=== PATIENT | female | born 1940 | race Caucasian/White ===

== ENCOUNTER 2017-12-17 12:54 | Inpatient (IN) | payer MEDICARE ==
[~2017-12-17] VITALS: Ht 162.6 cm; Wt 88.6 kg
[2017-12-17 13:49] LABS: HEMATOCRIT 34.9 % (37.0-47.0); HEMOGLOBIN 10.8 g/dl (12.0-16.0); IMMATURE GRANULOCYTES 0.6 % (0.0-1.0); MEAN CELL VOLUME 80.6 fL CALC (80.0-100.0); MEAN CORPUSCULAR HGB 24.9 pG CALC (26.0-32.0); MEAN CORPUSCULAR HGB CONC 30.9 g/L CALC (32.0-36.0); NEUT# 10.1 thou/uL (2.00-7.15); RED BLOOD COUNT 4.33 mill/uL (4.20-5.60); RED CELL DISTRI WIDTH 23.6 % (11.5-15.5)
[2017-12-17 14:03] LABS: ALBUMIN 3.5 g/dL (3.2-5.0); ALKALINE PHOSPHATASE 101 u/l (38-126); AMYLASE 61 u/l (30-110); ANION GAP 19 (6-22 (CALC)); BILIRUBIN, TOTAL 0.3 mg/dL (0.0-1.4); BUN 74 mg/dL (8-23); BUN/CREATININE RATIO 23 (12-20 (CALC)); CALCIUM 10.4 mg/dL (8.4-10.2); CARBON DIOXIDE 13 mmol/l (22-30); CHLORIDE 118 mmol/l (95-108); CREATININE 3.2 mg/dL (0.5-1.0); GFR 14 ML/MIN (>=60 (CALC)); GFR FOR AFR.AMER. 17 ML/MIN (>=60 (CALC)); GLUCOSE 105 mg/dL (82-115); LIPASE 302 u/l (23-300); SGOT/AST 23 u/l (9-36); SGPT/ALT 29 u/l (11-66); SODIUM 142 mmol/l (137-146); TOTAL PROTEIN 6.7 g/dL (6.3-8.2)
[2017-12-17 14:14] LABS: MYOGLOBIN 53 ng/mL (0 - 62)
[2017-12-17 14:22] LABS: POTASSIUM 7.6 mmol/l (3.5-5.1)
[2017-12-17] MEDS ORDERED: ONDANSETRON HCL4 MG PO (14:48)
[2017-12-17] MEDS ORDERED: METFORMIN500 MG PO (14:49)
[2017-12-17] MEDS ORDERED: TORSEMIDE20 M1 PO (14:49)
[2017-12-17] MEDS ORDERED: PLAVIX75 MG PO (14:49)
[2017-12-17] MEDS ORDERED: LISINOPRIL2.5 MG PO (14:50)
[2017-12-17] MEDS ORDERED: METOPROL TAR25 MG PO (14:51)
[2017-12-17] MEDS ORDERED: K-TAB20 MEQ PO (14:52)
[2017-12-17] MEDS ORDERED: LIPITOR20 MG PO (14:53)
[2017-12-17] MEDS ORDERED: [UNRECOGNIZED DRUG - CODE] PO (14:53)
[2017-12-17] MEDS ORDERED: FISH OIL1000 MG PO (14:54)
[2017-12-17] MEDS ORDERED: CINNAMON PO (14:54)
[2017-12-17] MEDS ORDERED: VITAMIN D35000 UNIT PO (14:55)
[2017-12-17] MEDS ORDERED: ASPIRIN 8181 MG PO (14:55)
[2017-12-17] MEDS ORDERED: CALCIUM 600 + D1 TAB PO (14:56)
[2017-12-17 16:18] VITALS: BP 140/61
[2017-12-17 18:45] VITALS: BP 130/69
[2017-12-17 23:25] VITALS: BP 98/59
[2017-12-17 23:51] LABS: POTASSIUM 6.2 mmol/l (3.5-5.1)
[2017-12-18 04:32] VITALS: BP 131/51
[2017-12-18 06:07] LABS: CALCIUM 9.6 mg/dL (8.4-10.2); CHOLESTEROL HDL RATIO 2.1 (<4.4 (CALC)); CREATININE 2.4 mg/dL (0.5-1.0); MAGNESIUM 1.8 mg/dL (1.6-2.3)
[2017-12-18 06:08] LABS: POTASSIUM 7.9 mmol/l (3.5-5.1)
[2017-12-18 06:10] LABS: HEMATOCRIT 30.1 % (37.0-47.0); HEMOGLOBIN 9.2 g/dl (12.0-16.0); IMMATURE GRANULOCYTES 0.7 % (0.0-1.0); MEAN CELL VOLUME 82.9 fL CALC (80.0-100.0); MEAN CORPUSCULAR HGB 25.3 pG CALC (26.0-32.0); MEAN CORPUSCULAR HGB CONC 30.6 g/L CALC (32.0-36.0); NEUT# 7.14 thou/uL (2.00-7.15); RED BLOOD COUNT 3.63 mill/uL (4.20-5.60); RED CELL DISTRI WIDTH 23.7 % (11.5-15.5)
[2017-12-18 08:30] VITALS: BP 151/64
[2017-12-18 10:36] LABS: POTASSIUM 5.9 mmol/l (3.5-5.1)
[2017-12-18 10:42] LABS: URINE BILIRUBIN - DIPSTICK NEGATIVE (NEGATIVE); URINE BLOOD DIPSTICK NEGATIVE (NEGATIVE); URINE COLOR YELLOW; URINE GLUCOSE - DIPSTICK NEGATIVE (NEGATIVE); URINE KETONE NEGATIVE (NEGATIVE); URINE NITRITE - DIPSTICK NEGATIVE (Negative); URINE PROTEIN - DIPSTICK NEGATIVE (NEG-TRACE); URINE SPECIFIC GRAVITY 1.015; URINE UROBILINOGEN - DIPSTICK 0.2 E.U./dL (0.2)
[2017-12-18 10:50] LABS: URINE BACTERIA FEW hpf; URINE CLARITY SL CLOUDY; URINE EPITHELIAL CELLS FEW EPI/hpf (0-FEW); URINE LEUK ESTERASE SMALL (NEGATIVE)
[2017-12-18 11:15] VITALS: BP 119/66
[2017-12-18 15:50] VITALS: BP 140/66
[2017-12-18 20:05] VITALS: BP 121/63
[2017-12-18 22:47] LABS: CALCIUM 8.8 mg/dL (8.4-10.2); CREATININE 2.1 mg/dL (0.5-1.0)
[2017-12-18 22:48] LABS: POTASSIUM 5.4 mmol/l (3.5-5.1)
[2017-12-19 00:15] VITALS: BP 141/56
[2017-12-19 01:26] LABS: INFLUENZA A NONE DETECTED (NONE DETECT); INFLUENZA B NONE DETECTED (NONE DETECT)
[2017-12-19 04:20] VITALS: BP 138/66
[2017-12-19 06:54] LABS: HEMATOCRIT 27.1 % (37.0-47.0); HEMOGLOBIN 8.5 g/dl (12.0-16.0); IMMATURE GRANULOCYTES 0.7 % (0.0-1.0); MEAN CELL VOLUME 79.7 fL CALC (80.0-100.0); MEAN CORPUSCULAR HGB CONC 31.4 g/L CALC (32.0-36.0); NEUT# 7.7 thou/uL (2.00-7.15); RED BLOOD COUNT 3.4 mill/uL (4.20-5.60); RED CELL DISTRI WIDTH 23.6 % (11.5-15.5)
[2017-12-19 07:04] LABS: ALBUMIN 2.3 g/dL (3.2-5.0); CALCIUM 8.6 mg/dL (8.4-10.2); CREATININE 1.8 mg/dL (0.5-1.0); MAGNESIUM 1.4 mg/dL (1.6-2.3); POTASSIUM 4.9 mmol/l (3.5-5.1)
[2017-12-19 12:28] VITALS: BP 138/57
[2017-12-19 16:30] VITALS: BP 137/64
[2017-12-19 19:30] VITALS: BP 127/57
[2017-12-20 00:15] VITALS: BP 130/59
[2017-12-20 05:05] VITALS: BP 107/78
[2017-12-20 05:47] LABS: HEMATOCRIT 25.6 % (37.0-47.0); MEAN CELL VOLUME 80.5 fL CALC (80.0-100.0); MEAN CORPUSCULAR HGB 25.2 pG CALC (26.0-32.0); MEAN CORPUSCULAR HGB CONC 31.3 g/L CALC (32.0-36.0); RED BLOOD COUNT 3.18 mill/uL (4.20-5.60); RED CELL DISTRI WIDTH 22.9 % (11.5-15.5)
[2017-12-20 06:08] LABS: CALCIUM 8.4 mg/dL (8.4-10.2); CREATININE 1.5 mg/dL (0.5-1.0); POTASSIUM 4.5 mmol/l (3.5-5.1)
[2017-12-20 06:10] LABS: ALBUMIN 2.1 g/dL (3.2-5.0); CALCIUM 8.6 mg/dL (8.4-10.2); CREATININE 1.5 mg/dL (0.5-1.0); POTASSIUM 4.5 mmol/l (3.5-5.1)
[2017-12-20 09:00] VITALS: BP 152/69
[2017-12-20 11:42] LABS: C. DIFFICILE TOXIN A&B NEGATIVE (NEGATIVE)
[2017-12-20 11:59] VITALS: BP 125/73
[2017-12-20 16:06] VITALS: BP 139/72
[2017-12-20 20:38] VITALS: BP 147/66
[2017-12-21 00:20] VITALS: BP 133/65
[2017-12-21 05:29] VITALS: BP 166/75
[2017-12-21 05:55] LABS: HEMATOCRIT 27.6 % (37.0-47.0); HEMOGLOBIN 8.6 g/dl (12.0-16.0); MEAN CELL VOLUME 81.2 fL CALC (80.0-100.0); MEAN CORPUSCULAR HGB 25.3 pG CALC (26.0-32.0); MEAN CORPUSCULAR HGB CONC 31.2 g/L CALC (32.0-36.0); RED BLOOD COUNT 3.4 mill/uL (4.20-5.60); RED CELL DISTRI WIDTH 23.1 % (11.5-15.5)
[2017-12-21 06:16] LABS: CREATININE 1.5 mg/dL (0.5-1.0); POTASSIUM 4.7 mmol/l (3.5-5.1)
[2017-12-21 07:45] VITALS: BP 160/67
[2017-12-21 11:38] VITALS: BP 140/62
[2017-12-21] MEDS ORDERED: JANUVIA50 MG PO (13:44)
[2017-12-21 15:35] VITALS: BP 137/50
== END 2017-12-21 16:21 | disposition home or self-care (01) | DRG 683 ==
LOC: ED 12:54 → ED-I 14:28 → ED 14:40 → MS2 14:41
PROVIDERS: Emergency Medicine; Internal Medicine Nephrology; Nurse Practitioner Family; ADMIT Internal Medicine; ATTEND Internal Medicine
DX: N17.9 Acute kidney failure, unspecified (principal); E87.2 Acidosis; I96 Gangrene, not elsewhere classified; E11.22 Type 2 diabetes mellitus with diabetic chronic kidney disease; E11.69 Type 2 diabetes mellitus with other specified complication; I13.0 Hypertensive heart and chronic kidney disease with heart failure and stage 1 through stage 4 chronic kidney disease, or unspecified chronic kidney disease; M86.671 Other chronic osteomyelitis, right ankle and foot; I50.9 Heart failure, unspecified; E83.42 Hypomagnesemia; E11.52 Type 2 diabetes mellitus with diabetic peripheral angiopathy with gangrene; E86.0 Dehydration; E87.5 Hyperkalemia; K21.9 Gastro-esophageal reflux disease without esophagitis; E78.5 Hyperlipidemia, unspecified; M19.90 Unspecified osteoarthritis, unspecified site; I25.10 Atherosclerotic heart disease of native coronary artery without angina pectoris; N18.3 Chronic kidney disease, stage 3 (moderate); D63.1 Anemia in chronic kidney disease; R11.2 Nausea with vomiting, unspecified; R19.7 Diarrhea, unspecified; Z95.0 Presence of cardiac pacemaker; Z95.5 Presence of coronary angioplasty implant and graft; Z79.84 Long term (current) use of oral hypoglycemic drugs
CPT/HCPCS: G0328; J1756; J3370

== ENCOUNTER 2018-01-05 11:48 | Inpatient (IN) | payer MEDICARE ==
[2018-01-05] VITALS (7 sets, daily range): BP systolic 119–163; BP diastolic 43–71
[~2018-01-05] VITALS: Ht 162.6 cm; Wt 92.0 kg
[~2018-01-05 11:48] MED LIST: ASPIRIN 8181 MG PO; CALCIUM 600 + D1 TAB PO; CINNAMON PO; CO Q 10100 MG PO; ELIQUIS2.5 MG PO; FISH OIL1000 MG PO; GLUCOSAMINE500 M1 PO; JANUVIA50 MG PO; K-TAB20 MEQ PO; LIPITOR20 MG PO; LISINOPRIL2.5 MG PO; METFORMIN500 MG PO; METOPROL TAR25 MG PO; MIRTAZAPINE15 M1 PO; MULTAQ400 MG PO; ONDANSETRON HCL4 MG PO; PLAVIX75 MG PO; TORSEMIDE20 M1 PO; TYLENOL PM PO; VITAMIN D35000 UNIT PO; [UNRECOGNIZED DRUG - CODE] PO; [UNRECOGNIZED DRUG - OTHER] PO
--- NOTE | 2018-01-05 16:50 | NUR ---
PT TO ROOM VIA STRETCHER ACCOMPANIED BY STAFF; TRANSFERED TO BED X2 PERSON ASSIST; PT A/O X3; DENIES PAIN; RA; VSS; DRSG TO RT FOOT CDI, RLE ELEVATED ON 2 PILLOWS; ICE PACK APPLIED TO RLE; LEFT 2ND AND 3RD TOE BLACK, COGNOS, NO DRAINAGE NOTED, SEE CHART FOR PICTURES; IVF INFUSING IN #20 LFA WITHOUT DIFFICULTY, NO REDNESS OR EDEMA AT SITE; PT ORIENTED TO ROOM AND CALL SYSTEM; SPOUSE IN TO VISIT; CALL RECINOS WITHIN REACH; WILL CONTINUE TO MONITOR.
--- NOTE | 2018-01-05 18:15 | NUR ---
PT ASSISTED TO BSC; VOIDS WITHOUT DIFFICULTY; CALL RECINOS WITHIN REACH; WILL CONTINUE TO MONITOR
--- NOTE | 2018-01-05 19:30 | NUR ---
PATIENT RESTING IN BED WITH RIGHT FOOT ELEVATED ON PILLOWS. PATIENT IS AWAKE ALERT AND ORIENTEDX3. PATIENT WITH NO COMPLAINTS OF PAIN AT THIS TIME. PATIENT STATES THAT HER FOOTIS STILL"NUMB". IV SITE TO LEFT FA INTACT WITH IVF PATENT AND INFUSING AT 100CC/HR. SITE APPEARS HEALTHY AT THIS TIME. PATIENT ON CONTACT PRECAUTIONS FOR HX OF MRSA. DRESSING TO RIGHT REMAINS INTACT AND SECURED WITH CHRIS WRAP. SAFETY PRECAUTIONS REINFORCED.CALL LIGHT IN REACH. WILL CONT TO MONITOR.
--- NOTE | 2018-01-05 23:15 | NUR ---
PATIENT C/O POST-OP PAIN TO THE RIGHT FOOT-MEDICATED WITH LORTAB 5/325MG PO ORDERED FOR PAIN. CLINDAMYCIN INFUSING ORDERED. RIGHT FOOT REMAINS ELEVATED. LEFT FOOT WITH SOME TOES DISCOLORED-PULSES PALPABLE. SAFETY PRECAUTIONS REINFORCED. CALL LIGHT IN REACH. WILL CONT TO MONITOR.
[2018-01-06 00:01] VITALS: BP 147/61
--- NOTE | 2018-01-06 00:52 | NUR ---
PATIENT SITTING UP IN CHAIR-BACK TO BED. MEDICATED FOR POST-OP PAIN WITH DILAUDID 2MG IVP ORDERED FOR PAIN. LR PATENT AND INFUSING AT 80CC/HR VIA RIGHT AC SITE-SITE REMAINS HEALTHY AT THIS TIME. SAFETY PRECAUTIONS REINFORCED. CALL LIGHT IN REACH. WILL CONT TO MONITOR.
[2018-01-06 04:02] VITALS: BP 146/67
--- NOTE | 2018-01-06 04:08 | NUR ---
IV SITE TO LEFT FOREARM INFILTRATED. SITE D/JENN-NEW IV SITE STARTED TO RIGHT FOREARM-#22 GAUGE WITH GOOD BLOOD RETURN. IVF NS PATENT AND INFUSING AT 100CC/HR. PATIENT WITH C/O POST-OP PAIN TO RIGHT FOOT. MEDICATED WITH LORTAB 5/325MG PO. RIGHT FOOT REMAINS ELEVATED ON PILLOWS. LEFT ARM ELEVATED ON PILLOW FOR SWELLING FROM INTILTRATION. SAFETY PRECAUTIONS REINFORCED. CALL LIGHT IN REACH. WILL CONT TO MONITOR.
[2018-01-06 05:39] LABS: CREATININE 1.9 mg/dL (0.5-1.0); HEMATOCRIT 27.7 % (37.0-47.0); HEMOGLOBIN 8.5 g/dl (12.0-16.0); IMMATURE GRANULOCYTES 0.3 % (0.0-1.0); MAGNESIUM 1.9 mg/dL (1.6-2.3); MEAN CELL VOLUME 85.5 fL CALC (80.0-100.0); MEAN CORPUSCULAR HGB 26.2 pG CALC (26.0-32.0); MEAN CORPUSCULAR HGB CONC 30.7 g/L CALC (32.0-36.0); NEUT# 5.27 thou/uL (2.00-7.15); POTASSIUM 4.4 mmol/l (3.5-5.1); RED BLOOD COUNT 3.24 mill/uL (4.20-5.60); RED CELL DISTRI WIDTH 22.3 % (11.5-15.5)
[2018-01-06 07:15] VITALS: BP 152/66
--- NOTE | 2018-01-06 07:15 | NUR ---
PATIENT ALERT AND ORIENTED. PUPILS ARE BRISK. HEART SOUNDS AND RHYTHM ARE NORMAL. LUNG SOUNDS ARE CLEAR. RADIAL PULSES ARE STRONG. BOWELS SOUNDS ARE ACTIVE, PATIENT STATES LAST BM 01/05/18. PATIENT HAS DRSG TO RIGHT FOOT, DRY AND INTACT. PATIENT STATES SHE CAN FEEL THE TOP OF HER FOOT,BOTTOM OF FOOT AND TOES ON RIGHT FOOT. PATIENT STATES SHE HAS NO PAIN AT THIS TIME. ENCOURAGED PATIENT TO CALL FOR ANY ASSISTANCE. SRX2, WHEELS LOCKED, BED IN LOWEST POSITION, CALL LIGHT WITHIN REACH. WILL CONTINUE TO MONITOR.
--- NOTE | 2018-01-06 09:42 | NUR ---
PLACED CALL TO SE[facility] GABRIELA REQUESTED HE BRING IN PTS MEDS TO VERIFY, ACKNOWLEDGE AGREEMENT.
--- NOTE | 2018-01-06 11:00 | NUR ---
AIDE ENTERED ROOM AND NOTICED THAT PT.HAD MOVED FROM THE BED TO THE CHAIR W/OUT CALLING FOR ASSISTANCE. CHAIR WAS UNLOCKED. AIDE PROCEEDED TO LOCK RECLINER AND THEN ASSIST PT.TO RESTROOM AND BACK TO RECLINER.
--- NOTE | 2018-01-06 11:39 | NUR ---
PT.IN RECLINER SLEEPING AND AT BEDSIDE ALSO SLEEPING. NO S/S OF DISTRESS AT THIS TIME. CALL LIGHT IS W/IN REACH
--- NOTE | 2018-01-06 14:13 | NUR ---
PT.MEDICATED ORDERS PROVIDE. PT.IS UPRIGHT IN BED IN HIGH FOWLERS POSITION WATCHING TV. POC DISCUSSED W/PT. SHE REPORTS FEELING MUCH BETTER AND JUST WAITING FOR THURSDAY. CALL LIGHT W/IN REACH.
[2018-01-06 16:00] VITALS: BP 160/90
[2018-01-06 18:50] VITALS: BP 164/71
--- NOTE | 2018-01-06 19:00 | NUR ---
RECEIVED CHANGE OF SHIFT REPORT FROM SOURAV JOY. PATIENT ALERT AND ORIENTED AND SITTING UP IN CHAIR. DENIES PAIN. NO APPARENT ACUTE DISTRESS OR DISCOMFORT NOTED. WILL CONTINUE TO MONITOR.
--- NOTE | 2018-01-07 | NUR ---
PATIENT RESTING QUIETLY WITH EYES CLOSED AND APPEARS TO BE ASLEEP. NO APPARENT ACUTE DISTRESS NOTED.
--- NOTE | 2018-01-07 04:00 | NUR ---
PT AWAKE AND LYING IN BED. NO APPARENT ACUTE CHANGES NOTED IN PT'S CONDITION
[2018-01-07 04:30] VITALS: BP 156/53
[2018-01-07 05:19] LABS: HEMATOCRIT 28.1 % (37.0-47.0); HEMOGLOBIN 8.5 g/dl (12.0-16.0); MEAN CELL VOLUME 85.9 fL CALC (80.0-100.0); MEAN CORPUSCULAR HGB CONC 30.2 g/L CALC (32.0-36.0); RED BLOOD COUNT 3.27 mill/uL (4.20-5.60); RED CELL DISTRI WIDTH 22.2 % (11.5-15.5)
[2018-01-07 05:33] LABS: CREATININE 1.9 mg/dL (0.5-1.0); POTASSIUM 4.1 mmol/l (3.5-5.1)
--- NOTE | 2018-01-07 08:15 | NUR ---
PT.IS UPRIGHT IN RECLINER W/OUT FOOT ELEVATED. I SPOKE WITH PT.REGARDING KEEPING FOOT ELEVATED, SHE SAID SHE WILL LET US ELEVATE IT AFTER BREAKFAST. V/S AND PT.ASSESSED. DRESSING CHANGE COMPLETE TO LEFT FOOT 2ND AND 3RD TOES W/BETADINE AND GAUZE ORDERED BY DR. SANTA. PT.DENIES ANY PAIN UPON DRESSING CHANGE. BREAKFAST TRAY HAS ARRIVED AND PT.LEFT UPRIGHT IN RECLINER EATING BREAKFAST AT THIS TIME, CALL LIGHT AT SIDE
[2018-01-07 08:28] VITALS: BP 146/50
--- NOTE | 2018-01-07 09:09 | NUR ---
PT.UPRIGHT IN RECLINER. PT.MEDICATED W/AM MEDICATIONS ODERS PROVIDE, CALL LIGHT IS W/IN REACH, PT.DENIES ANY OTHER ASSISTANCE AT THIS TIME.
--- NOTE | 2018-01-07 11:38 | NUR ---
PT.MEDICATED W/IV ANTIBIOTIC THERAPY. PT.IS IN RECLINER. I ASSISTED PT.IN ELEVATING FEET W/ RECLINER AND 2XPILLOWS. IS AT BEDSIDE. PT.DENIES ANY OTHER NEEDS,CALL LIGHT AT SIDE
[2018-01-07 12:42] LABS: URINE BILIRUBIN - DIPSTICK NEGATIVE (NEGATIVE); URINE BLOOD DIPSTICK NEGATIVE (NEGATIVE); URINE COLOR YELLOW; URINE GLUCOSE - DIPSTICK NEGATIVE (NEGATIVE); URINE KETONE NEGATIVE (NEGATIVE); URINE NITRITE - DIPSTICK NEGATIVE (Negative); URINE PROTEIN - DIPSTICK NEGATIVE (NEG-TRACE); URINE SPECIFIC GRAVITY <=1.005; URINE UROBILINOGEN - DIPSTICK 0.2 E.U./dL (0.2)
[2018-01-07 12:45] LABS: URINE CLARITY CLEAR; URINE LEUK ESTERASE SMALL (NEGATIVE)
[2018-01-07 13:36] LABS: URINE SQUAMOUS EPITHELIAL CELL FEW EPI/hpf (0-FEW)
[2018-01-07 15:20] VITALS: BP 150/77
--- NOTE | 2018-01-07 16:55 | NUR ---
PT.IS SITTING IN RECLINER W/LEGS ELEVATED AND FEET ON PILLOWS X2 READING THE PAPER. IS AT BEDSIDE. DRESSINGS TO RIGHT FOOT AND LEFT TOES ARE CDI. POC DISCUSSED W/PT. LUNG SOUNDS ARE CLEAR AT THIS TIME. PT.DENIES ANY NEEDS. WILL FOLLOW-UP WITH MEDICAITONS ORDERED. CALL LIGHT IS W/IN REACH
--- NOTE | 2018-01-07 19:00 | NUR ---
RECEIVED CHANGE OF SHIFT REPORT FROM SOURAV JOY. PATIENT SITTING UP IN CHAIR WITH FEET ELEVATED. DENIES PAIN. NO APPARENT ACUTE DISTRESS OR DISCOMFORT NOTED. WILL CONTINUE TO MONITOR.
[2018-01-07 19:48] VITALS: BP 156/75
[2018-01-07 23:49] VITALS: BP 152/67
[2018-01-08] VITALS (9 sets, daily range): BP systolic 133–178; BP diastolic 60–86
--- NOTE | 2018-01-08 | NUR ---
PATIENT LYING IN BED QUIETLY. NO APPARENT ACUTE DISTRESS NOTED.
--- NOTE | 2018-01-08 04:00 | NUR ---
PATIENT RESTING QUIETLY. NO APPARENT ACUTE CHANGES NOTED IN PATIENT'S CONDITION.
[2018-01-08 05:20] LABS: HEMATOCRIT 26.7 % (37.0-47.0); HEMOGLOBIN 8.3 g/dl (12.0-16.0); MEAN CELL VOLUME 84.8 fL CALC (80.0-100.0); MEAN CORPUSCULAR HGB 26.3 pG CALC (26.0-32.0); MEAN CORPUSCULAR HGB CONC 31.1 g/L CALC (32.0-36.0); RED BLOOD COUNT 3.15 mill/uL (4.20-5.60)
[2018-01-08 05:31] LABS: CREATININE 1.7 mg/dL (0.5-1.0); POTASSIUM 4.2 mmol/l (3.5-5.1)
--- NOTE | 2018-01-08 07:30 | NUR ---
PT. IS LAYING IN BED WITH HOB ELEVATED, PT'S EYES ARE CLOSED. PT IS EASILY AROUSED. ORIENTED X3. PERRLA, 3MM. ALL LUNG MOR[place] ARE CLEAR AND RESP. ARE EVEN AND UNLABORED. PULSE IS STRONG, HEART MURMER NOTED. BOWEL SOUNDS ACTIVE IN ALL FOUR QUADRANTS. ABDOMEN IS SOFT. PT HAS A 22 GAUGE IN HER RIGHT FOREARM INFUSING NORMAL SALINE. IV SITE IS FREE FROM SWELLING OR REDNESS. PT IS NPO, DUE TO POSSIBLE SURGERY LATER TODAY.PT VERBALIZES UNDERSTANDING THAT SHE IS NPO BECAUSE OF THE SURGERY. NO EDEMA NOTED IN PT'S LEGS. PEDAL PULSES ARE STRONG. PT DOES HAVE A DRESSING TO HER RIGHT FOOT. DRESSING IS DRY AND INTACT. PT. HAS REQUESTED TO REST. SAFETY PRECAUTIONS REINFORCED. CALL LIGHT WITHIN REACH. WILL CONTINUE TO MONITOR.
--- NOTE | 2018-01-08 08:00 | NUR ---
REPORT RECEIVED FROM SOURAV HUMPHREYS. PT SITTING UPRIGHT IN BED. DENIES PAIN. DRESSIHNGS TO BILATERAL FEET CDI. PARTIAL WB TO RIGHT HEEL REVIEED. FALL PRECAUTIONS REINFORCED. CALL LIGHT REVIEWED AND IN REACH. NPO STATUS DISCUSSED. PT STATES UNDERSTANDING OF ALL INFORMATION.
--- NOTE | 2018-01-08 12:19 | NUR ---
PT SITTING UPRIGHT IN BED. AT BEDSIDE. PT SLEEPING AT THIS TIME.
--- NOTE | 2018-01-08 13:00 | NUR ---
PT LEFT FLOOR VIA STRETCHER ACCOMPANIED BY OR STAFF.
--- NOTE | 2018-01-08 16:20 | NUR ---
PT ARRIVED TO FLOOR VIA STRETCHER ACCOMPANIED BY SOURAV NAVARRO. PT TRANSFERED TO BED BY PULL-OVER. AT BEDSIDE. DENIES PAIN AT THIS TIME. REPORTING OF CONCERNS ENCOURAGED. CHRIS WRAP DRESSINGS TO BILATERAL FEET CDI. BILATERAL FEET ELEVATED ON PILLOWS. CALL LIGHT REVIEWED AND IN REACH. PT STATES UNDERSTANDING.
--- NOTE | 2018-01-08 17:42 | NUR ---
PT REPORTS THROBBING TO TOES OF RIGHT FOOT. LORTAB PO ADMINISTERED. BLANKETS AND SHEET REMOVED FROM FOOT. WILL CONTINUE TO MONITOR.
--- NOTE | 2018-01-08 19:30 | NUR ---
PATIENT RESTING IN BED AT THIS TIME-AWAKE ALERT AN ORIENTEDX3. DRESSING TO BOTH FEET ARE CDI AND SECURED WITH CHRIS WRAP. BOTH FEET ELEVATED ON PILLOWS. PATIENT WITH IV SITE TO RIGHT FOREARM WITH IVF NS PATENT AND INFUSING AT 100CC/HR. SITE APPEARS HEALTHY AT THIS TIME. TELE MONITORING DEVICE APPLIED ORDERED. HR-50'S AT THIS TIME. PATIENT WITH NO COMPLAINTS AT THIS TIME. SAFETY PRECAUTIONS REINFORCED.CALL LIGHT IN REACH. WILL CONT TO MONITOR.
--- NOTE | 2018-01-08 22:30 | NUR ---
PATIENT FOUND COMING OUT OF HER ROOM WITH DRESSING COMING OFF THE RIGHT FOOT AND BLOOD STAINS ON THE FLOOR. PATIENT DISORIENTED TO PLACE AND TIME. ASSISTED PATIENT BACK TO BED. KERLIX AND CHRIS WRAP REPLACED IT HAD COME LOOSE. ATTEMPTED TO REORIENT PATIENT TO PLACE AND TIME. PATIENT C/O VIKTOR FOOT PAIN-TOO EARLY FOR LORTAB-MEDICATED WITH MORPHINE 2MG IVP FOR PAIN. IV SITE TO RIGHT FPOREARM REMAINS INTACT WITH IVF NS PATENT AND INFUSING AT 100CC/HR. BOTH FEET ELEVATED ON PILLOWS. BED ALARM IN PLACE FOR PATIENT SAFETY. PATIENT TRANSFERRED TO ROOM 272 TO BE CLOSER TO THE NSG STATION. CALL LIGHT IN REACH. WILL CONT TO MONITOR.
--- NOTE | 2018-01-09 | NUR ---
PATIENT APPEARS SLEEPING AT THIS TIME WITH EYES CLOSED. BED ALARM IN PLACE FOR PATIENT SAFETY. BOTH FEET ELEVATED ON PILLOWS-DRESSINGS TO BOTH FEET INTACT AND SECURED WITH CHRIS WRAPS. CALL LIGHT IN REACH. WILL CONT TO MONITOR.
[2018-01-09 01:15] VITALS: BP 135/56
[2018-01-09 04:10] VITALS: BP 149/62
--- NOTE | 2018-01-09 04:30 | NUR ---
PATIENT RESTING IN BED-C/O FOOT PAIN TO BOTH FEET-05/09. MEDICATED WITH LORTAB FOR POST-O P PAIN TO BOTH FEET. BOTH FEET REMAIN ELEVATED. BED ALARM IN PLACE FOR PATIENT SAFETY. IVF PATENT AND INFUSING AT 100CC/HR. CALL LIGHT IN REACH. WILL CONT TO MONITOR.
[2018-01-09 05:59] LABS: CREATININE 1.6 mg/dL (0.5-1.0); MAGNESIUM 1.9 mg/dL (1.6-2.3); POTASSIUM 4.3 mmol/l (3.5-5.1)
[2018-01-09 06:02] LABS: HEMOGLOBIN 7.7 g/dl (12.0-16.0); IMMATURE GRANULOCYTES 0.4 % (0.0-1.0); MEAN CELL VOLUME 87.1 fL CALC (80.0-100.0); MEAN CORPUSCULAR HGB 26.8 pG CALC (26.0-32.0); MEAN CORPUSCULAR HGB CONC 30.8 g/L CALC (32.0-36.0); NEUT# 4.84 thou/uL (2.00-7.15); RED BLOOD COUNT 2.87 mill/uL (4.20-5.60); RED CELL DISTRI WIDTH 21.8 % (11.5-15.5)
--- NOTE | 2018-01-09 07:24 | NUR ---
REPORT RECEIVED FROM SOURAV CORTES. PT SITTING UPRIGHT IN BED. SLEEPING. CALL LIGHT WITHIN REACH. BED ALARM SET FOR SAFETY.
[2018-01-09 07:44] VITALS: BP 137/60
--- NOTE | 2018-01-09 08:33 | NUR ---
PT AWAKENED FOR VS, MEDICATIONS AND BREAKFAST. FALL PRECAUTIONS AND ACITIVTY RESTRICTIONS REVIEWED. PT STATES UNDERSTANDING. DOES NOT RECALL GETTING OUT OF BED ALONE LAST NIGHT. BED ALARM SET FOR SAFETY. CALL LIGHT REVIEWED AND IN REACH. PT STATES UNDERSTANDING.,
[2018-01-09] MEDS ORDERED: VANTIN200 M1 PO ×2 (11:33→11:45)
[2018-01-09 12:15] VITALS: BP 134/71
--- NOTE | 2018-01-09 13:42 | NUR ---
Discharge instructions given. Patient verbalizes understanding of same. Discharged in stable condition via Wheelchair to Home with spouse. All belongings sent with pt.
== END 2018-01-09 14:05 | disposition home or self-care (01) | DRG 256 ==
LOC: ORM 11:48 → MS2 16:42
PROVIDERS: Nurse Practitioner Family; ADMIT Internal Medicine; ATTEND Podiatrist Foot & Ankle Surgery
PROC: 0Y6P0Z3 Detachment at Right 1st Toe, Low, Open Approach (ICD-10-PCS; principal; 2018-01-05)
PROC: 0Y6S0Z3 Detachment at Left 2nd Toe, Low, Open Approach (ICD-10-PCS; 2018-01-08)
PROC: 0Y6T0Z3 Detachment at Right 3rd Toe, Low, Open Approach (ICD-10-PCS; 2018-01-08)
PROC: 0Y6U0Z3 Detachment at Left 3rd Toe, Low, Open Approach (ICD-10-PCS; 2018-01-08)
PROC: 0Y6R0Z3 Detachment at Right 2nd Toe, Low, Open Approach (ICD-10-PCS; 2018-01-08)
PROC: 0HQMXZZ Repair Right Foot Skin, External Approach (ICD-10-PCS; 2018-01-08)
DX: I96 Gangrene, not elsewhere classified (principal); M86.671 Other chronic osteomyelitis, right ankle and foot; E11.22 Type 2 diabetes mellitus with diabetic chronic kidney disease; I48.2 Chronic atrial fibrillation; N18.3 Chronic kidney disease, stage 3 (moderate); L03.031 Cellulitis of right toe; E78.5 Hyperlipidemia, unspecified; I12.9 Hypertensive chronic kidney disease with stage 1 through stage 4 chronic kidney disease, or unspecified chronic kidney disease; M19.90 Unspecified osteoarthritis, unspecified site; D63.1 Anemia in chronic kidney disease; B96.4 Proteus (mirabilis) (morganii) as the cause of diseases classified elsewhere; Z79.84 Long term (current) use of oral hypoglycemic drugs; Z79.01 Long term (current) use of anticoagulants; Z95.5 Presence of coronary angioplasty implant and graft; Z95.0 Presence of cardiac pacemaker

== ENCOUNTER 2018-01-31 15:11 | Emergency (ER) | payer MEDICARE ==
[~2018-01-31] VITALS: Ht 162.6 cm; Wt 90.0 kg
[~2018-01-31 15:11] MED LIST changes: +VANTIN200 M1 PO
[2018-01-31 17:06] LABS: IMMATURE GRANULOCYTES 0.2 % (0.0-1.0); MEAN CELL VOLUME 86.2 fL CALC (80.0-100.0); MEAN CORPUSCULAR HGB 27.5 pG CALC (26.0-32.0); MEAN CORPUSCULAR HGB CONC 31.9 g/L CALC (32.0-36.0); NEUT# 5.71 thou/uL (2.00-7.15); RED BLOOD COUNT 4.77 mill/uL (4.20-5.60); RED CELL DISTRI WIDTH 16.9 % (11.5-15.5)
[2018-01-31 17:07] LABS: HEMATOCRIT 41.1 % (37.0-47.0); HEMOGLOBIN 13.1 g/dl (12.0-16.0)
[2018-01-31] MEDS ORDERED: DOXYCYC MONO100 M2 PO (17:25)
[2018-01-31 19:25] VITALS: BP 148/67
== END 2018-01-31 19:25 | disposition short-term general hospital (02) ==
LOC: ED 15:11
PROVIDERS: Family Medicine
PROC: 2Y41X5Z Packing of Nasal Region using Packing Material (ICD-10-PCS; principal; 2018-01-31)
DX: R04.0 Epistaxis (principal); Z79.82 Long term (current) use of aspirin; Z79.01 Long term (current) use of anticoagulants

== ENCOUNTER 2018-02-14 14:15 | Emergency (ER) | payer MEDICARE ==
[~2018-02-14] VITALS: Ht 162.6 cm; Wt 101.0 kg
[~2018-02-14 14:15] MED LIST changes: +DOXYCYC MONO100 M2 PO
[2018-02-14 14:51] VITALS: BP 151/95
== END 2018-02-14 14:48 | disposition home or self-care (01) ==
LOC: ED 14:15
DX: R04.0 Epistaxis (principal); E11.22 Type 2 diabetes mellitus with diabetic chronic kidney disease; I13.10 Hypertensive heart and chronic kidney disease without heart failure, with stage 1 through stage 4 chronic kidney disease, or unspecified chronic kidney disease; N18.9 Chronic kidney disease, unspecified; K21.9 Gastro-esophageal reflux disease without esophagitis; M19.90 Unspecified osteoarthritis, unspecified site; E78.5 Hyperlipidemia, unspecified; Z79.02 Long term (current) use of antithrombotics/antiplatelets; Z79.01 Long term (current) use of anticoagulants

== ENCOUNTER → 2019-01-12 | Outpatient (REF) | payer MEDICARE | END | disposition home or self-care (01) | LOC: STRESS 11:47 → NUCMED 12:00 | PROVIDERS: ATTEND Internal Medicine | DX: I25.9 Chronic ischemic heart disease, unspecified (principal); I20.9 Angina pectoris, unspecified | CPT/HCPCS: A9502; J2785 ==

== ENCOUNTER → 2019-01-31 | Outpatient (REF) | payer MEDICARE ==
[2019-01-31 14:25] LABS: HEMATOCRIT 36.1 % (37.0-47.0); HEMOGLOBIN 11.6 g/dl (12.0-16.0); IMMATURE GRANULOCYTES 0.2 % (0.0-5.0); MEAN CELL VOLUME 90.9 fL CALC (80.0-100.0); MEAN CORPUSCULAR HGB 29.2 pG CALC (26.0-32.0); MEAN CORPUSCULAR HGB CONC 32.1 g/L CALC (32.0-36.0); NEUT# 5.95 thou/uL (2.00-7.15); RED BLOOD COUNT 3.97 mill/uL (4.20-5.60); RED CELL DISTRI WIDTH 13.6 % (11.5-15.5)
[2019-01-31 14:39] LABS: CREATININE 2.3 mg/dL (0.5-1.0); POTASSIUM 4.8 mmol/l (3.5-5.1)
[2019-01-31 15:47] LABS: URINE BILIRUBIN - DIPSTICK NEGATIVE (NEGATIVE); URINE BLOOD DIPSTICK NEGATIVE (NEGATIVE); URINE COLOR YELLOW; URINE GLUCOSE - DIPSTICK NEGATIVE (NEGATIVE); URINE KETONE NEGATIVE (NEGATIVE); URINE LEUK ESTERASE MODERATE (Negative); URINE NITRITE - DIPSTICK NEGATIVE (Negative); URINE PROTEIN - DIPSTICK NEGATIVE (NEG-TRACE); URINE SPECIFIC GRAVITY 1.015; URINE UROBILINOGEN - DIPSTICK 0.2 E.U./dL (0.2)
[2019-01-31 15:48] LABS: URINE CLARITY SL CLOUDY
[2019-01-31 16:07] LABS: URINE BACTERIA MANY hpf; URINE SQUAMOUS EPITHELIAL CELL FEW EPI/hpf (0-FEW); URINE WBC 50-100 WBC/hpf (0-5)
== END | disposition home or self-care (01) ==
LOC: LAB 13:36
PROVIDERS: ATTEND Internal Medicine Nephrology
DX: N18.3 Chronic kidney disease, stage 3 (moderate) (principal); D63.1 Anemia in chronic kidney disease; N25.81 Secondary hyperparathyroidism of renal origin